=== PATIENT | female | born 2000 | race African-American/Black ===

== ENCOUNTER 2023-07-19 06:01 | Emergency (ER) | payer OTHER, SELFPAY ==
[2023-07-19] VITALS (28 sets, daily range): BP systolic 101–127; BP diastolic 65–107; PULSE 63–84; RESP 14–26; TEMP 36.7; O2SAT 69–100
--- NOTE | ~2023-07-19 | XR_ITS ---
Clinical Indication: Chest pain PA and lateral views of the chest: Comparison: None Findings: The lungs are clear, without evidence of focal consolidation or pleural effusion. Cardiome diastinal silhouette is within normal limits. Bones and soft tissues are unremarkable. Impression: Normal chest. Reviewed, dictated and finalized at location . N CUSTOMER EXPERIENCE SPECIALIST Impression: Normal chest.
--- NOTE | 2023-07-19 06:09 | ECG_ITS ---
Measurements Intervals [place] Rate: 66 P: 187 HI: 251 QRS: 67 QRSD: 95 T: 53 QT: 385 QTc: 405 Interpretive Statements SINUS RHYTHM POSSIBLE RIGHT VENTRICULAR CONDUCTION DELAY [RSR (QR) IN V1/V2] WITHIN NORMAL LIMITS NO PREVIOUS ECG AVAILABLE FOR COMPARISON Electronically Signed On 07-19-2023 7:20:52 DONOR RECRUITER by Fahad Montesinos M.D.
[2023-07-19 06:36] LABS: Basophils Percent Auto 0.6 % (0.2-1.2); Eosinophils Absolute Auto 0.1 K/mm3 (0-0.3); Eosinophils Percent Auto 1.6 % (0-4.4); Hematocrit 38.6 % (37.0-47.0); Hemoglobin 12.9 g/dL (12.0-15.0); Immature Granulocyte Absolute 0.01 K/mm3 (0.00-0.031); Immature Granulocyte Percent A 0.2 % (0-0.5); Lymphocytes Absolute Auto 1.97 K/mm3 (0.9-3.2); Mean Corpuscular HGB Conc 33.4 g/dl (32-36); Mean Corpuscular Hemoglobin 30.1 pg (26-34); Mean Corpuscular Volume 90.2 fl (80-100); Mean Platelet Volume 9.9 fl (7.4-10.4); Monocytes Absolute Auto 0.4 K/mm3 (0.1-0.6); Monocytes Percent Auto 8.3 % (2.6-8.5); Neutrophils Absolute Auto 2.4 K/mm3 (1.3-6.7); Neutrophils Percent Auto 49.3 % (45.5-73.1); Platelet Count Result 229 k/mm3 (150-375); Red Blood Count 4.28 M/mm3 (4.2-5.4); Red Cell Distribution Width 13.2 % (11.5-14.5); White Blood Count 4.9 K/mm3 (4.5-10.0)
[2023-07-19 06:47] LABS: INR 1.1; Prothrombin Time 14.6 Seconds (11.1-14.7)
[2023-07-19 06:48] LABS: Partial Thromboplastin Time 33.4 SECONDS (22.3-36.8)
[2023-07-19 06:50] LABS: Alanine Aminotransferase 12 U/L (6-35); Albumin Level 3.9 g/dL (3.5-5.1); Alkaline Phosphatase 66 U/L (38-126); Anion Gap 6 mmol/L (8-16); Aspartate Amino Transferase 26 U/L (14-36); Bilirubin,Total 0.4 mg/dL (0.2-1.3); Blood Urea Nitrogen 8 mg/dL (7-17); Calcium 8.7 mg/dL (8.4-10.2); Carbon Dioxide 24 mmol/L (22-30); Chloride 111 mmol/L (98-107); Estimated CRCL calculation 72 ml/min; Estimated Glomerular Filt Rate > 60; Glucose 93 mg/dL (65-110); Lipase 129 U/L (23-300); Potassium 4.1 mmol/L (3.4-5.0); Sodium 141 mmol/L (137-145)
[2023-07-19 07:01] LABS: Troponin I < 0.012 ng/mL (0.000-0.034)
--- NOTE | 2023-07-19 07:24 | ED.CHESTPAIN ---
HPI - Chest Pain General Chief Complaint: Chest Pain Stated Complaint: chest pain Time Seen by Provider: 07/19/23 07:02 History of Present Illness HPI narrative: Patient is a 23-year-old female who presents to the emergency department this morning complaining of a mid chest sharp stabbing chest pain which started this. Patient denies any similar symptoms in the past and denies any history of cardiovascular disease. Pain does not radiate and is not associated with any factors including respiration or movement. Patient denies any additional symptoms including shortness of breath, nausea, vomiting, abdominal pain, dysuria, hematuria, constipation, diarrhea, melena, hematochezia, fevers or chills. Patient also denies any headaches, dizziness, lightheadedness, blurry visions, focal weakness, numbness and or tingling. There are no other modifying, alleviating, or precipitating factors at this time. Related Data Allergies Allergy/AdvReac Type Severity Reaction Status Date / Time No Known Allergies Allergy Verified 07/19/23 06:02 Review of Systems Review of Systems: All systems are reviewed and are negative unless stated otherwise in the HPI. PMFSH Comments Denies any past medical history, surgical history, and family history. Denies any tobacco use or alcohol use, denies any illicit drug use. Exam Narrative: General: Alert, awake, afebrile, in no acute distress. HEENT: PERRL, no rhinorrhea, no post nasal drip, oropharynx clear. Neck: Trachea midline, no JVD, no lymphadenopathy. Cardiovascular: Regular rate and rhythm, no murmurs, rubs or gallops, no peripheral edema. Respiratory: Clear to auscultation bilaterally, no tachypnea, no wheezing, no rhonchi, no rubs, no respiratory distress. Abdomen: Soft, nontender, nondistended, no rebound, no guarding, no peritoneal signs. Musculoskeletal: No joint swelling or deformity, normal muscle tone. Skin: No rashes or petechia, no signs of infection. Psychiatric: Alert and oriented, normal behavior and judgment for situation. Neurological: Alert and oriented to person, place, and time. Follows all commands. No focal deficits, speech is clear and fluent. Course Vital Signs Vital signs: Vital Signs Temperature 98.0 F 07/19/23 06:03 Pulse Rate 75 07/19/23 06:03 Respiratory Rate 14 07/19/23 06:03 Blood Pressure 127/85 07/19/23 06:03 Pulse Oximetry 100 07/19/23 06:03 Oxygen Delivery Room Air 07/19/23 06:03 Temperature 98.0 F 07/19/23 06:03 Pulse Rate 72 07/19/23 09:11 Respiratory Rate 22 H 07/19/23 09:11 Blood Pressure 114/78 07/19/23 09:11 Pulse Oximetry 100 07/19/23 09:11 Oxygen Delivery Room Air 07/19/23 07:27 MDM - Chest Pain MDM Narrative Medical decision making narrative: The patient was evaluated by myself in the emergency department. History is obtained from patient who is an independent historian and physical exam was performed. External medical records were reviewed at this time. IV was established and pertinent tests were ordered. EKG was obtained which revealed sinus rhythm rate of 66 beats per minute. No ST changes, T wave inversions or evidence of acute ischemia. EKG was independently interpreted by me and is currently pending official cardiology read. Laboratory results obtained including troponin and D-dimer which were both noted to be within normal limits. Second troponin obtained also noted to be normal Imaging studies obtained included CXR which was independently interpreted by me revealing no acute process, which is pending final radiology interpretation. Differential diagnosis considerations include stress reaction, anxiety, infectious process such as pneumonia, viral syndrome including COVID/influenza, acute coronary symptom although unlikely given the patient's lack of risk factors and 2- troponins within normal EKG. Comorbidities impacting this visit include none. I have evaluated and discussed soc
[2023-07-19 07:43] LABS: D Dimer < 0.27 ug/mL (<0.48)
[2023-07-19 08:28] LABS: Influenza A QL RT-PCR Negative (Negative); Influenza B QL RT-PCR Negative (Negative); SARS-CoV-2 RNA PCR Negative (Negative)
--- NOTE | 2023-07-19 09:01 | ECG_ITS ---
Measurements Intervals [place] Rate: 68 P: 19 MS: 149 QRS: 61 QRSD: 85 T: 39 QT: 374 QTc: 400 Interpretive Statements SINUS RHYTHM POSSIBLE RIGHT VENTRICULAR CONDUCTION DELAY [RSR (QR) IN V1/V2] WITHIN NORMAL LIMITS COMPARED TO ECG 07/19/2023 06:14:32 NO SIGNIFICANT CHANGES Electronically Signed On 07-19-2023 15:32:13 PHOTOVOLTAIC PANEL INSTALLER by Fahad Montesinos M.D.
[2023-07-19 09:51] LABS: Troponin I < 0.012 ng/mL (0.000-0.034)
== END 2023-07-19 10:19 | disposition home or self-care (01) ==
PROVIDERS: Emergency Medicine; Emergency Provider Emergency Medicine
DX: R07.9 Chest pain, unspecified (principal); Z20.822 Contact with and (suspected) exposure to COVID-19; R94.31 Abnormal electrocardiogram [ECG] [EKG]
CPT/HCPCS: 36415; 71046; 80053; 83690; 84484; 85025; 85380; 85610; 85730; 87636; 93005; 99284

== ENCOUNTER 2023-07-23 03:49 | Emergency (ER) | payer OTHER, SELFPAY ==
[2023-07-23 03:52] VITALS: BP 132/87; PULSE 103; RESP 18; TEMP 36.4; O2SAT 99
[2023-07-23 04:30] LABS: Strep Group A RT-PCR NOT DETECTED (Negative)
[2023-07-23 04:41] LABS: Influenza A QL RT-PCR Negative (Negative); Influenza B QL RT-PCR Positive (Negative); RSV RNA, RT-PCR Negative (Negative); SARS-CoV-2 RNA PCR Negative (Negative)
--- NOTE | 2023-07-23 04:52 | ED.GENADULT ---
HPI - General Adult General Chief complaint: Upper Respiratory Infection Stated complaint: cough, chest pain Time Seen by Provider: 07/23/23 04:24 History of Present Illness HPI narrative: This is a 23-year-old female presenting ED with 2 days of flu-like symptoms. Symptoms include fever body aches and headache. Patient denies nausea vomiting or diarrhea. Denies chest pain difficulty breathing. Mild sore throat from the cough. No ear pain. Related Data Allergies Allergy/AdvReac Type Severity Reaction Status Date / Time No Known Allergies Allergy Verified 07/23/23 03:59 Exam Narrative: APPEARANCE: No apparent distress. Head: ears and throat unremarkable EYES: EOMI, NOSE: Atraumatic NECK: Trachea midline RESPIRATORY: No increased rate of breathing , clear to auscultation CARDIOVASCULAR: RRR, no peripheral edema ABDOMINAL: Non-distended soft nontender MUSCULOSKELETAl: No obvious deformities NEURO: Alert. Moving 4/4 extremities SKIN:: Warm, dry. Normal color PSYCHIATRIC: Normal affect Course Vital Signs Vital signs: Vital Signs Temperature 97.5 F L 07/23/23 03:52 Pulse Rate 103 H 07/23/23 03:52 Respiratory Rate 18 07/23/23 03:52 Blood Pressure 132/87 07/23/23 03:52 Pulse Oximetry 99 07/23/23 03:52 Oxygen Delivery Room Air 07/23/23 03:52 Temperature 97.5 F L 07/23/23 03:52 Pulse Rate 103 H 07/23/23 03:52 Respiratory Rate 18 07/23/23 03:52 Blood Pressure 132/87 07/23/23 03:52 Pulse Oximetry 99 07/23/23 03:52 Oxygen Delivery Room Air 07/23/23 03:58 Medical Decision Making [facility] Narrative Medical decision making narrative: -Course: 23-year-old female presenting with flu-like symptoms. Positive for and when to be. Patient treated with Tylenol Toradol emergency department. Risks and benefits of Tamiflu were discussed the patient has opted for a prescription for Tamiflu. Patient discharged with return precautions. 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 girlfriend, denies alcohol tobacco, occasional marijuana use -Independent interpretation of studies: flu B positive -Interventions: Toradol, Tylenol -Shared decision making / Disposition: discharge -RX Motrin Tylenol tamiflu Vital Signs Vital Signs: Vital Signs Temperature 97.5 F L 07/23/23 03:52 Pulse Rate 103 H 07/23/23 03:52 Respiratory Rate 18 07/23/23 03:52 Blood Pressure 132/87 07/23/23 03:52 Pulse Oximetry 99 07/23/23 03:52 Oxygen Delivery Room Air 07/23/23 03:52 Temperature 97.5 F L 07/23/23 03:52 Pulse Rate 103 H 07/23/23 03:52 Respiratory Rate 18 07/23/23 03:52 Blood Pressure 132/87 07/23/23 03:52 Pulse Oximetry 99 07/23/23 03:52 Oxygen Delivery Room Air 07/23/23 03:58 Lab Data Labs: Lab Results 07/23/23 Range/Units 04:00 Influenza A (RT-PCR) Negative (Negative) Influenza B (RT-PCR) Positive A (Negative) RSV (RT-PCR) Negative (Negative) SARS-CoV-2 RNA (RT-PCR) Negative (Negative) Group A Strep (PCR) Not detected (Negative) Discharge Plan Discharge Clinical Impression: Influenza Patient Disposition: Home, Self-Care Condition: Stable Instructions: Antibiotic Form, Influenza (ED) Prescriptions: New ibuprofen 800 mg tablet 800 mg PO TID PRN (Reason: pain) 7 Days Qty: 21 0RF acetaminophen 500 mg tablet 1,000 mg PO TID PRN (Reason: ever) 7 Days Qty: 42 0RF oseltamivir 75 mg capsule 75 mg PO Q12H 5 Days Qty: 10 0RF Follow-up/Referrals: UNKNOWN,DOCTOR [Primary Care Provider] -
[2023-07-23] MEDS: ACETAMINOPHEN 500 MG TABLET 1000 MG PO (05:12)
[2023-07-23] MEDS: KETOROLAC 15 MG/ML VIAL (*BKC) IM (05:12)
[2023-07-23 05:18] VITALS: BP 134/87; PULSE 102; RESP 16; O2SAT 97
== END 2023-07-23 05:21 | disposition home or self-care (01) ==
PROVIDERS: Emergency Provider Emergency Medicine
DX: J10.1 Influenza due to other identified influenza virus with other respiratory manifestations (principal); Z20.822 Contact with and (suspected) exposure to COVID-19
CPT/HCPCS: 87637; 87651; 96372; 99283; A9270; J1885

== ENCOUNTER 2023-10-02 15:38 | Emergency (ER) | payer OTHER, SELFPAY ==
[2023-10-02 15:48] VITALS: BP 124/81; PULSE 82; RESP 16; TEMP 37.2; O2SAT 98
--- NOTE | 2023-10-02 17:14 | ED.GENADULT ---
HPI - General Adult General Chief complaint: Skin/Abscess/Foreign Body Stated complaint: breaking out back,shoulders,stomach Source: patient Mode of arrival: ambulatory Limitations: no limitations History of Present Illness HPI narrative: Patient presents for evaluation of a pruritic rash to the chest, back and face for the last 11 days. No new lotions, soaps, detergents or topical products prior to the time of symptom onset. She has been using cocoa butter to assist with her symptoms. No difficulty breathing or swallowing. She had similar symptoms in the past but never looked into it. Her symptoms started after a trip to [email or web address]. She is not sexually active. Related Data Home Medications Medication Instructions Recorded Confirmed medroxyprogesterone 150 mg/mL See Rx Instructions .Route .COMPLEX 10/02/23 10/02/23 intramuscular suspension Allergies Allergy/AdvReac Type Severity Reaction Status Date / Time No Known Allergies Allergy Verified 10/02/23 16:08 Review of Systems Review of Systems: CONSTITUTIONAL: Denies fever, chills, or sweats. EYES: Denies visual changes, redness, or discharge. ENT: Denies rhinorrhea, congestion, sore throat, or otalgia. CARDIOVASCULAR: Denies chest pain, palpitations, or edema. RESPIRATORY: Denies cough or dyspnea. GASTROINTESTINAL: Denies abdominal pain, nausea, vomiting, or diarrhea. GENITOURINARY: Denies dysuria or hematuria. SKIN: Reports pruritic rash to face, back and chest. MUSCULOSKELETAL: Denies back pain, joint pain, or myalgia. NEUROLOGIC: Denies headache, numbness, dizziness, or weakness. PSYCHIATRIC: Denies anxiety or depression. [facility] Past Medical History Medical History No pertinent past medical history Surgical History Surgical History No pertinent past surgical history Family History Family History Mother Family history non-contributory Social History Social History Smoking status: Never smoker Alcohol intake: never Substance use: current Substance use type: marijuana Spiritual care concerns: No Exam Narrative: GENERAL: Well-appearing, well-nourished, and in no acute distress. HEAD: Normocephalic, atraumatic. EYES: PERRLA and EOMI. ENT: Nares clear, no rhinorrhea or epistaxis. Mucous membranes moist. Oropharynx without tonsillar hypertrophy exudate or other lesions. Bilateral TMs pearly mckinley nonbulging NECK: Supple. No adenopathy or masses. No carotid bruits or JVD CHEST: Clear to auscultation. No respiratory distress. No wheezes rales or rhonchi HEART: Regular rate and rhythm. No murmur heard. Normal peripheral pulses. ABDOMEN: Soft, nontender, nondistended, normal active bowel sounds. EXTREMITIES: Normal range of motion. No edema. SKIN: There are slightly pinpoint raised areas to the skin of the face, chest and back, some of which are hyperpigmented in appearance NEURO: No focal deficits. Alert and oriented x3. PSYCH: Normal mood and affect. Course Course Emergency Course: This is a 23-year-old female who presented for evaluation of a pruritic rash to the face, chest, back for the past eleven days. Differential includes tinea versicolor vs some type of allergic reaction. Reports discharge with ketoconazole and prednisone. Follow-up with primary provider. Go to the ER for worsening symptoms. Pt in agreement with plan of care. Level of Care: Express Care Visit Vital Signs Vital signs: Vital Signs Temperature 37.2 C 10/02/23 15:48 Pulse Rate 82 10/02/23 15:48 Respiratory Rate 16 10/02/23 15:48 Blood Pressure 124/81 10/02/23 15:48 Pulse Oximetry 98 10/02/23 15:48 Oxygen Delivery Room Air 10/02/23 15:48 Temperature 37.2 C 10/02/23 15:48 Pul
== END 2023-10-02 17:24 | disposition home or self-care (01) ==
PROVIDERS: Emergency Provider Nurse Practitioner
DX: R21 Rash and other nonspecific skin eruption (principal)
CPT/HCPCS: 99213; G0463

== ENCOUNTER 2023-10-09 11:42 | Emergency (ER) | payer OTHER, SELFPAY ==
--- NOTE | ~2023-10-09 | XR_ITS ---
EXAMINATION: XR chest 2V 10/09/2023 12:16 INDICATION: Chest pain PROCEDURE: 2 view chest COMPARISON: 07/19/2023 FINDINGS: The lungs are clear. The cardiomediastinal silhouette is within normal limits. There are no pleural effusions. There is no pneumothorax suspected. IMPRESSION: 1: NO ACUTE CARDIOPULMONARY DISEASE. Reviewed, dictated and finalized at location B.
[2023-10-09 11:50] VITALS: BP 147/90; PULSE 99; RESP 24; TEMP 36.5; O2SAT 100
--- NOTE | 2023-10-09 11:58 | ECG_ITS ---
SEE SCANNED COPY FOR CONFIRMED REPORT. MTDD
[2023-10-09 12:08] LABS: Basophils Percent Auto 0.2 % (0.2-1.2); Eosinophils Absolute Auto 0.1 K/mm3 (0-0.3); Eosinophils Percent Auto 0.5 % (0-4.4); Hemoglobin 14.7 g/dL (12.0-15.0); Immature Granulocyte Absolute 0.05 K/mm3 (0.00-0.031); Immature Granulocyte Percent A 0.4 % (0-0.5); Lymphocytes Absolute Auto 0.79 K/mm3 (0.9-3.2); Lymphocytes Percent Auto 6.9 % (18.3-44.2); Mean Corpuscular HGB Conc 33.4 g/dl (32-36); Mean Corpuscular Hemoglobin 30.1 pg (26-34); Mean Platelet Volume 10.3 fl (7.4-10.4); Monocytes Absolute Auto 0.7 K/mm3 (0.1-0.6); Monocytes Percent Auto 5.8 % (2.6-8.5); Neutrophils Absolute Auto 9.9 K/mm3 (1.3-6.7); Neutrophils Percent Auto 86.2 % (45.5-73.1); Platelet Count Result 245 k/mm3 (150-375); Red Blood Count 4.89 M/mm3 (4.2-5.4); Red Cell Distribution Width 13.5 % (11.5-14.5); White Blood Count 11.4 K/mm3 (4.5-10.0)
[2023-10-09 12:16] LABS: Prothrombin Time 13.4 Seconds (11.1-14.7)
[2023-10-09 12:17] LABS: Partial Thromboplastin Time 29.4 Seconds (22.3-36.8)
[2023-10-09 12:31] LABS: Alanine Aminotransferase 20 U/L (6-35); Alkaline Phosphatase 85 U/L (38-126); Anion Gap 9 mmol/L (4-12); Aspartate Amino Transferase 26 U/L (14-36); Bilirubin,Total 0.7 mg/dL (0.2-1.3); Blood Urea Nitrogen 15 mg/dL (7-17); Calcium 9.4 mg/dL (8.4-10.2); Carbon Dioxide 23 mmol/L (22-30); Chloride 107 mmol/L (98-107); Estimated CRCL calculation 81 ml/min; Estimated Glomerular Filt Rate > 60; Glucose 98 mg/dL (65-110); Lipase 146 U/L (23-300); Potassium 4.6 mmol/L (3.4-5.0); Sodium 139 mmol/L (137-145)
[2023-10-09 12:43] LABS: Troponin I < 0.012 ng/mL (0.000-0.034)
--- NOTE | 2023-10-09 12:44 | ED.ABDPAIN ---
HPI - Abdominal Pain General Chief Complaint: Abdominal Pain Stated Complaint: abd pain Time Seen by Provider: 10/09/23 12:07 Source: patient Mode of arrival: ambulatory Limitations: no limitations History of Present Illness HPI narrative: 23-year-old otherwise healthy here with the complaints of abdominal pain radiating into her chest associated with nausea, vomiting and diarrhea started this morning. She denies any fever or chills no other family members sick at this time. She denies eating any unusual food or fluid. MD elicited complaint: abdominal pain Pertinent past history: none Onset (ago): hour(s) (8) Pain Consistency: now resolved Location: epigastric Severity: mild Quality: aching Radiation: chest Migration to: no migration Exacerbating factors: nothing Relieving factors: nothing Associated symptoms: denies other symptoms Related Data Patient : No Home Medications Medication Instructions Recorded Confirmed medroxyprogesterone 150 mg/mL See Rx Instructions .Route .COMPLEX 10/02/23 10/02/23 intramuscular suspension Allergies Allergy/AdvReac Type Severity Reaction Status Date / Time No Known Allergies Allergy Verified 10/02/23 16:08 Review of Systems Review of Systems: All systems reviewed & are unremarkable except as noted in HPI and below Constitutional: Constitutional: Reports no additional constitutional complaints Eyes: Eyes: Reports no additional eye complaints ENT: Reports system reviewed and no additional complaints, except as documented Cardiovascular: Cardiovascular: Reports no additional cardiovascular complaints Respiratory: Respiratory: Reports no additional respiratory complaints Gastrointestinal: Gastrointestinal: Reports as per HPI Musculoskeletal: Musculoskeletal: Reports no additional musculoskeletal complaints Neurologic: Reports system reviewed and no additional complaints, except as documented Psychiatric: Psychiatric: Reports no additional psychiatric complaints PMFSH Past Medical History Medical History No pertinent past medical history Surgical History Surgical History No pertinent past surgical history Family History Family History Mother Family history non-contributory Social History Social History Smoking status: Never smoker Alcohol intake: never Substance use: current Substance use type: marijuana Spiritual care concerns: No Exam Narrative: GENERAL: Well-appearing, well-nourished, and in no acute distress. HEAD: Normocephalic, atraumatic. EYES: PERRLA and EOMI. ENT: Nares clear, no rhinorrhea or epistaxis. Mucous membranes moist. NECK: Supple. CHEST: Clear to auscultation. No respiratory distress. HEART: Regular rate and rhythm. No murmur heard. Normal peripheral pulses. ABDOMEN: Soft, nontender, nondistended, normal active bowel sounds. EXTREMITIES: Normal range of motion. No edema. SKIN: Warm, dry, no rash. NEURO: No focal deficits. Alert and oriented x3. PSYCH: Normal mood and affect. Course Course Emergency Course: Patient comfortably resting on the bed in no discomfort had no further episodes of nausea, vomiting or diarrhea. Notified had about the lab work, EKG findings Vital Signs Vital signs: Vital Signs Temperature 36.5 C 10/09/23 11:50 Pulse Rate 99 10/09/23 11:50 Respiratory Rate 24 H 10/09/23 11:50 Blood Pressure 147/90 H 10/09/23 11:50 Pulse Oximetry 100 10/09/23 11:50 Temperature 36.5 C 10/09/23 11:50 Pulse Rate 99 10/09/23 11:50 Respiratory Rate 24 H 10/09/23 11:50 Blood Pressure 147/90 H 10/09/23 11:50 Pulse Oximetry 100 10/09/23 11:50 MDM - Abdominal Pain Differential Diagnosis Differential diagnosis: Likely abdominal pain and gastroente
== END 2023-10-09 13:11 | disposition home or self-care (01) ==
PROVIDERS: Emergency Medicine; Emergency Provider Family Medicine
DX: K52.9 Noninfective gastroenteritis and colitis, unspecified (principal)
CPT/HCPCS: 36415; 71046; 80053; 83690; 84484; 85025; 85610; 85730; 93005; 99284

== ENCOUNTER 2025-02-14 16:22 | Emergency (ER) | payer SELFPAY ==
--- OUTSIDE RECORDS SUMMARY | 2025-02-14 16:25 | XMS_ITS | Clinical Summary ---
Author Organization [facility] Address [address] [place] [address] Care Team Providers Care Sales Manager [place] Name Role Phone Lucila Nation MD Primary Care Provider [phone] Allergies No known active allergies Medications oxaprozin 600 MG tablet Take 1 tablet (600 mg total) by mouth 2 (two) times daily as needed (Pain. Please take with meals). 60 tablet 0 Active Norgestimate-Et hinyl Estradiol (ORTHO TRI-CYCLEN, 28,) 0.18/0.215/0.25 MG-35 MCG tablet Take 1 tablet by mouth daily. 28 tablet 0 Active fluconazole (DIFLUCAN) 150 MG tablet Take 150mg on day one. Can take remaining 150mg 72 hours later if if symptoms persist 2 tablet 2 Active Social History Tobacco Use Types Packs/Day Years Used Date Smoking Tobacco: Former Cigarettes Smokeless Tobacco: Never Alcohol Use Standard Drinks/Week Comments No 0 (1 standard drink = 0.6 oz pur e alcohol) AUDIT-C Answer Date Recorded Frequency of Alcohol Consumption Never 12/21/2018 Average Number of Drinks Not on file 019 Frequency of Binge Drinking Not on file 12/08 Comments No Sex and Gender Information Value Date Recorded Sex Assigned at Not on file Legal Sex Female 6:57 PM CDT Gender Identity Not on file Sexual Orientation Not on file Last Filed Vital Signs Vital Sign Reading Time Taken Comments Blood Pressure 132/82 02/10/2022 2:22 PM CDT Pulse 78 02/10/2022 2:22 PM CDT Temperature 36.4 C (97.5 F) 02/10/2022 2:22 PM CDT Respiratory Rate 18 02/10/2022 2:22 PM CDT Oxygen Saturation 100% 02/10/2022 2:22 PM CDT Inhaled Oxygen Concentration - - Weight 65.8 kg (145 lb 1 oz) 02/10/2022 2:22 PM CDT Height 162.6 cm (5' 4) 02/10/2022 2:22 PM CDT Body Mass Index 24.9 02/10/2022 2:22 PM CDT Plan of Treatment Health Maintenance Due Date Last Done Comments Cervical Cancer Screening Pap Smear (Age 21 to 29) Every 3 Years 1998 Cervical Cancer Screening 1998 Annual Physical 2001 DTaP, Tdap and Td Vaccines (5 - Tdap) 2009 01/22/2003, 05/25/1999, 1998, Additional history exists Hepatitis C 02/17/2016 Hepatitis B Vaccines (1 of 3 - 19+ 3-dose series) 2017 COVID-19 Vaccine ( season) 2025 HPV Vaccines Completed 01/20/2014, 06/11, 01/07/2012 Meningococcal Vaccine Completed 03/02/2014 Meningococcal B Vaccine Aged Out No l onger eligible based on patient's age to complete this topic Pneumococcal Vaccine: Pediatrics (0 to 5 Years) and At-Risk Patients (6 to 49 Years) Aged Out No longer eligible based on patient's age to complete this topic RSV Immunizations Under 20 Months Aged Out No longer eligible based on patient's age to complete this topic Insurance Care Teams Sales Manager [place] Relationship Specialty Start Date End Date Lucila Nation MD [address] [place] [address] PCP - General INTERNAL MEDICINE 01/19/22
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
[2025-02-14 16:35] VITALS: BP 131/82; PULSE 66; RESP 16; TEMP 36.7; O2SAT 100
--- NOTE | 2025-02-14 17:07 | ED_ITS ---
HPI - Alcohol General Chief Complaint: Alcohol Stated Complaint: I think I have alcohol poisoning N/V Time Seen by Provider: 02/14/25 16:42 History of Present Illness HPI narrative: Patient is a 24-year-old female who presents to the ER stating I got alcohol poisoning last night.She reports she went out for a birthday celebration last night and was doing shots. Patient reports she started vomiting, but continue drinking until 2:00 a.m. She endorses nausea, vomiting, and chest discomfort (from vomiting) at time of examination. Patient denies any recent fevers, diarrhea, urinary symptoms, or abdominal pain. She denies any medical history relevant to this ER visit. Patient does endorse daily marijuana use. Related Data Home Medications ?Medication ?Instructions ?Recorded ?Confirmed ?Last Taken ?Type medroxyprogesterone 150 mg/mL See Rx Instructions .Rou te .COMPLEX 10/02/23 10/02/23 Unknown History intramuscular suspension Allergies Allergy/AdvReac Type Severity Reaction Status Date / Time No Known Allergies Allergy Verified 02/14/25 16:24 Review of Systems 2 Review of Systems: All systems reviewed & are unremarkable except as noted in HPI and below PMFSH Past Medical History Medical History No pertinent past medical history Surgical History Surgical History No pertinent past surgical history Family History Family History Mother Family history non-contributory Social History Social History Smoking status: Never smoker Alcohol intake: never Substance use: current Substance use type: marijuana Spiritual care concerns: No Exam 2 Narrative: GENERAL: Well appearing, well-nourished, non-toxic, in no acute distress. HEAD: Normocephalic, atraumatic. NECK: Supple. No adenopathy, no masses. RESPIRATORY: Airway patent, respirations nonlabored. Clear to auscultation bilaterally, no rales, rhonchi, wheezing. CARDIOVASCULAR: Regular rate and rhythm without murmurs, rubs, or gallops. Peripheral pulses 2+ and equal bilaterally. ABDOMINAL: Soft, nontender, nondistended, no hepatosplenomegaly. Normoactive BS. MUSCULOSKELETAL: Moves all extremities. Strength/ROM intact without gross deformities. SKIN: Warm, dry, normal color. No rashes. NEURO: A&O X3. Speech clear. Cranial nerves II-XII intact. No ataxic movements. PSYCHIATRIC: Appropriate mood and affect. Normal interaction. Course Vital Signs Vital signs: Vital Signs Temperature 36.7 C 02/14/25 16:35 Pulse Rate 66 02/14/25 16:35 Respiratory Rate 16 02/14/25 16:35 Blood Pressure 131/82 02/14/25 16:35 Pulse Oximetry 100 02/14/25 16:35 Oxygen Delivery Room Air 02/14/25 16:35 Temperature 36.7 C 02/14/25 16:35 Pulse Rate 66 02/14/25 16:35 Respiratory Rate 16 02/14/25 16:35 Blood Pressure 131/82 02/14/25 16:35 Pulse Oximetry 100 02/14/25 16:35 Oxygen Delivery Room Air 02/14/25 16:35 MDM - Alcohol MDM Narrative Medical decision making narrative: Patient is a 24-year-old female who presents to the ER stating I got alcohol poisoning last night. She reports she went out for a birthday celebration last night and was doing shots. Patient reports she started vomiting, but continue drinking until 2:00 a.m. She endorses nausea, vomiting, and chest discomfort (from vomiting) at time of examination. Patient denies any recent fevers, diarrhea, urinary symptoms, or abdominal pain. She denies any medical history relevant to this ER visit. Patient does endorse daily marijuana use. Labs Ordered: CBC, CMP, UA, UDS Imaging Ordered: None necessary Medications Ordered: 1 L normal saline IV bolus, Benadryl IV, Reglan IV Results: Patient's CBC was unremarkable for any acute abnormalities. Her chemistry was unremarkable for any acute abnormalities. Patient's urinalysis indicates mild dehydration. Her drug screen is positive for cannabinoids. Diagnosis: Nausea vomiting, alcohol intoxication, drug induced nausea/vomit Patient Education/Shared MDM: Results of lab work shared with patient. She endorses improvement of symptoms following medication administration. Patient strongly advised to maintain hydration status upon discharge and follow-up with her PCP as soon as possible. Patient advised to refrain from further alcohol and drug use. She will be discharged home with a prescription for Reglan. Strict return precautions provided. Patient verbalized understanding and is in agreement with plan. Vital signs stable at time of discharge. All questions answered. Differential Diagnosis Differential diagnosis: Likely alcohol intoxication and other (Drug-induced nausea vomiting, dehydration, urinary tract infection) Lab Data Attestation: I reviewed the patient's lab results. 02/14/25 17:58 02/14/25 17:58 Labs: Lab Results 02/14/25 02/14/25 Range/Units 17:58 18:00 WBC 8.6 (4.5-10.0) K/mm3 RBC 4.27 (4.2-5.4) M/mm3 Hgb 12.4 (12.0-15.0) g/dL Hct 37.9 (37.0-47.0) % MCV 88.8 (80-100) fl MCH 29.0 (26-34) pg MCHC 32.7 (32-36) g/dl RDW 13.3 (11.5-14.5) % Plt Count 262 (150-375) k/mm3 MPV 10.4 (7.4-10.4) fl Immature Gran % (Auto) 0.6 H (0-0.5) % Neut % (Auto) 79.4 H (45.5-73.1) % Lymph % (Auto) 14.4 L (18.3-44.2) % [place] % (Auto) 5.3 (2.6-8.5) % Eos % (Auto) 0.0 (0-4.4) % Baso % (Auto) 0.3 (0.2-1.2) % Lymph # (Auto) 1.24 (0.9-3.2) K/mm3 [place] # (Auto) 0.5 (0.1-0.6) K/mm3 Eos # (Auto) 0.0 (0-0.3) K/mm3 Baso # (Auto) 0.0 (0.0-0.1) K/mm3 Abs Immat Gran (auto) 0.05 H (0.00-0.031) K/mm3 Absolute Neuts (auto) 6.9 H (1.3-6.7) K/mm3 Absolute Nucleated RBC 0.000 (0.0-0.012) K/mm3 Nucleated RBC % 0.0 (0.0-0.2) % Sodium 140 (137-145) mmol/L Potassium 4.2 (3.4-5.0) mmol/L Chloride 105 (98-107) mmol/L Carbon Dioxide 26 (22-30) mmol/L Anion Gap 9 (4-12) mmol/L BUN 11 (7-17) mg/dL Creatinine 0.86 (0.7-1.0) mg/dL Estim Creat Clear Calc 75 ml/min Estimated GFR > 60 (59 - ) Glucose 97 (65-110) mg/dL Calcium 9.3 (8.4-10.2) mg/dL Total Bilirubin 0.3 (0.2-1.3) mg/dL AST 34 (14-36) U/L ALT 18 (6-35) U/L Alkaline Phosphatase 90 (38-126) U/L Total Protein 8.0 (6.3-8.2) g/dL Albumin 4.7 (3.5-5.1) g/dL Urine Color Yellow (Yellow) Urine Appearance Clear (Clear) Urine pH 8.5 (5.0-9.0) Ur Specific [place] 1.015 (1.001-1.035) Urine Protein 1+ H (Negative) mg/dL Urine Glucose (UA) Negative (Negative) mg/dL Urine Ketones Trace H (Negative) mg/dL Ur Blood (Man) Negative (Negative) Urine Nitrate Negative (Negative) Urine Bilirubin Negative (Negative) Urine Urobilinogen 0.2 (<2.0) mg/dL Leukocyte Esterase Rfl Negative (Negative) CECILY/UL Urine RBC 11-20 H (0-2) /hpf Urine WBC 0-5 (0-3) /hpf Ur Squamous Epith Cells Few (Few) /hpf Urine Bacteria Rare /hpf Urine Casts 0-2 Urine Opiates Screen Negative (Negative) Urine Methadone Screen Negative (Negative) Ur Barbiturates Screen Negative (Negative) Ur Phencyclidine Scrn Negative (Negative) Ur Amphetamine Screen Negative (Negative) U Benzodiazepines Scrn Negative (Negative) Urine Cocaine Screen Negative (Negative) U Cannabinoids Screen Positive A (Negative) Discharge Plan Discharge Clinical Impression: Alcoholic intoxication, Dehydration, mild, Drug-induced nausea and vomiting Patient Disposition: Home Condition: Stable Instructions: Antibiotic Form, Alcohol Intoxication (ED) Additional Instructions: Please return to the ER with any worsening symptoms. Follow-up with primary care provider as needed. You may take Reglan as needed for nausea. Please remember to stay hydrated. You may take Tylenol and/or ibuprofen for pain control. Patient Language: Belarusian Prescriptions: New metoclopramide HCl [Reglan] 10 mg tablet 10 mg PO Q6H PRN (Reason: nausea and vomiting) Qty: 30 0RF No Action medroxyprogesterone 150 mg/mL suspension See Rx Instructions .ROUTE .COMPLEX Rx Instructions: Rx prednisone 50 mg tablet 50 mg PO DAILY Qty: 5 0RF ketoconazole 2 % cream 1 applic topical BID Qty: 60 1RF hydroxyzine pamoate [Vistaril] 25 mg capsule 25 - 50 mg PO TID Qty: 20 0RF ondansetron 4 mg tablet,disintegrating 4 mg PO Q6-8H PRN (Reason: nausea and vomiting) Qty: 14 0RF Follow-up/Referrals: PHYSICIAN,BACK TACKER [Primary Care Provider, Internal Medicine] Benoit Zafar MD [Physician, Family Practice] Referral Note: primary care provider Stand Alone Forms: Work/School Release IP Time of Disposition: 18:40
[2025-02-14] MEDS: METOCLOPRAMIDE HCL INJ 10 MG/2 ML VIAL IV PUSH (17:59)
[2025-02-14] MEDS: SODIUM CHLORIDE 0.9% IV 1,000 ML 999 ML IV CONT (17:59)
[2025-02-14 18:12] LABS: Hematocrit 37.9 % (37.0-47.0); Hemoglobin 12.4 g/dL (12.0-15.0); Immature Granulocyte Percent A 0.6 % (0-0.5); Lymphocytes Absolute Auto 1.24 K/mm3 (0.9-3.2); Mean Corpuscular HGB Conc 32.7 g/dl (32-36); Mean Corpuscular Hemoglobin 29.0 pg (26-34); Mean Corpuscular Volume 88.8 fl (80-100); Nucleated Red Blood Cells Absolute Auto 0.000 K/mm3 (0.0-0.012); Nucleated Red Blood Cells Perc 0.0 % (0.0-0.2); Platelet Count Result 262 k/mm3 (150-375); Red Blood Count 4.27 M/mm3 (4.2-5.4); White Blood Count 8.6 K/mm3 (4.5-10.0)
[2025-02-14 18:15] LABS: Non Pathogenic Casts 0-2
[2025-02-14 18:18] LABS: Add Urine Microscopic? YES; Appearance Urine Clear (Clear); Glucose Urine UA Negative (Negative); Specific Grav Ur 1.015 (1.001-1.035)
[2025-02-14 18:19] LABS: Leukocyte Esterase Ur Negative LEU/UL (Negative); Nitrate Urine Negative (Negative)
[2025-02-14 18:23] LABS: Alanine Aminotransferase 18 U/L (6-35); Albumin Level 4.7 g/dL (3.5-5.1); Alkaline Phosphatase 90 U/L (38-126); Anion Gap 9 mmol/L (4-12); Aspartate Amino Transferase 34 U/L (14-36); Bilirubin,Total 0.3 mg/dL (0.2-1.3); Blood Urea Nitrogen 11 mg/dL (7-17); Calcium 9.3 mg/dL (8.4-10.2); Carbon Dioxide 26 mmol/L (22-30); Chloride 105 mmol/L (98-107); Estimated CRCL calculation 75 ml/min; Estimated Glomerular Filt Rate > 60; Glucose 97 mg/dL (65-110); Potassium 4.2 mmol/L (3.4-5.0); Sodium 140 mmol/L (137-145); Total Protein 8.0 g/dL (6.3-8.2)
[2025-02-14 18:32] LABS: Cannabinoid Screen Urine Positive (Negative)
== END 2025-02-14 19:27 | disposition home or self-care (01) ==
PROVIDERS: Emergency Provider Registered Nurse
DX: F10.120 Alcohol abuse with intoxication, uncomplicated (principal); Y90.9 Presence of alcohol in blood, level not specified; E86.0 Dehydration; R11.2 Nausea with vomiting, unspecified
CPT/HCPCS: 36415; 80053; 80307; 81001; 85025; 96361; 96374; 96375; 99284; J1200; J2765; J7030

== ENCOUNTER 2025-03-31 15:14 | Emergency (ER) | payer SELFPAY ==
[2025-03-31 15:16] VITALS: BP 134/78; PULSE 70; RESP 18; TEMP 36.6; O2SAT 100
[2025-03-31 15:32] VITALS: BP 130/87; PULSE 84; RESP 16; TEMP 36.7; O2SAT 100
[2025-03-31] MEDS: ACETAMINOPHEN 500 MG TABLET 1000 MG PO (15:56)
--- NOTE | 2025-03-31 16:17 | ED.GENADULT ---
HPI - General Adult General Chief complaint: Upper Respiratory Infection Stated complaint: my face hurts Time Seen by Provider: 03/31/25 15:20 History of Present Illness HPI narrative: This is a 75-year-old female presenting for URI symptoms. Patient says she has been having sinus pain and pressure in her face and sinuses. She also has a sore throat and some ear fullness. She denies fevers nausea or vomiting. She had 1 episode of diarrhea. No chest pain difficulty breathing or abdominal pain. Related Data Home Medications ?Medication ?Instructions ?Recorded ?Confirmed ?Last Taken ?Type medroxyprogesterone 150 mg/mL See Rx Instructions .Route .COMPLEX 10/02/23 10/02/23 Unknown History intramuscular suspension Allergies Allergy/AdvReac Type Severity Reaction Status Date / Time No Known Allergies Allergy Verified 03/31/25 15:15 [facility] Past Medical History Medical History No pertinent past medical history Surgical History Surgical History No pertinent past surgical history Family History Family History Mother Family history non-contributory Social History Social History Smoking status: Never smoker Alcohol intake: never Substance use: current Substance use type: marijuana Spiritual care concerns: No Exam Narrative: APPEARANCE: No apparent distress. Head: atraumatic. Mild erythema of the posterior oropharynx without exudates. Tympanic membranes are normal bilaterally. EYES: EOMI, NOSE: Atraumatic NECK: Trachea midline RESPIRATORY: No increased rate of breathing clear to auscultation CARDIOVASCULAR: RRR, ABDOMINAL: Non-distended soft nontender MUSCULOSKELETAl: No obvious deformities NEURO: Alert. Moving 4/4 extremities SKIN:: Warm, dry. Normal color PSYCHIATRIC: Normal affect Course Vital Signs Vital signs: Vital Signs Temperature 97.8 F 03/31/25 15:16 Pulse Rate 70 03/31/25 15:16 Respiratory Rate 18 03/31/25 15:16 Blood Pressure 134/78 03/31/25 15:16 Pulse Oximetry 100 03/31/25 15:16 Oxygen Delivery Room Air 03/31/25 15:16 Temperature 98.1 F 03/31/25 15:32 Pulse Rate 84 03/31/25 15:32 Respiratory Rate 16 03/31/25 15:32 Blood Pressure 130/87 03/31/25 15:32 Pulse Oximetry 100 03/31/25 15:32 Oxygen Delivery Room Air 03/31/25 15:32 Medical Decision Making MDM Narrative Medical decision making narrative: -Course: 25-year-old female presenting sinus pain and pressure. She has erythema of the posterior oropharynx. Given Tylenol and dexamethasone for pharyngitis. COVID and flu were negative. Strep throat was negative. Patient will be discharged on amoxicillin. Given primary care follow-up. -DDX includes but is not limited to: Strep throat, viral syndrome Vital Signs Vital Signs: Vital Signs Temperature 97.8 F 03/31/25 15:16 Pulse Rate 70 03/31/25 15:16 Respiratory Rate 18 03/31/25 15:16 Blood Pressure 134/78 03/31/25 15:16 Pulse Oximetry 100 03/31/25 15:16 Oxygen Delivery Room Air 03/31/25 15:16 Temperature 98.1 F 03/31/25 15:32 Pulse Rate 84 03/31/25 15:32 Respiratory Rate 16 03/31/25 15:32 Blood Pressure 130/87 03/31/25 15:32 Pulse Oximetry 100 03/31/25 15:32 Oxygen Delivery Room Air 03/31/25 15:32 Discharge Plan Discharge Clinical Impression: Pharyngitis Patient Disposition: Home Condition: Stable Instructions: Antibiotic Form, Pharyngitis (ED) Additional Instructions: You were seen emergency department for sinus pressure any sore throat. Your COVID, flu and strep throat were all negative. Please complete a course of amoxicillin. Please follow-up with your primary care physician for further management. He can use Motrin Tylenol as needed pain. Patient Language: Somali Prescriptions: New amoxicillin 500 mg capsule 500 mg PO Q12H Qty: 20 0RF ibuprofen 800 mg tablet 800 mg PO TID PRN (Reason: pain) 7 Days Qty: 21 0RF acetaminophen 500 mg tablet 1,000 mg PO TID PRN (Reason: ever) 7 Days Qty: 42 0RF No Action medroxyprogesterone 150 mg/mL suspension See Rx Instructions .ROUTE .COMPLEX Rx Instructions: Rx prednisone 50 mg tablet 50 mg PO DAILY Qty: 5 0RF ketoconazole 2 % cream 1 applic topical BID Qty: 60 1RF hydroxyzine pamoate [Vistaril] 25 mg capsule 25 - 50 mg PO TID Qty: 20 0RF ondansetron 4 mg tablet,disintegrating 4 mg PO Q6-8H PRN (Reason: nausea and vomiting) Qty: 14 0RF metoclopramide HCl [Reglan] 10 mg tablet 10 mg PO Q6H PRN (Reason: nausea and vomiting) Qty: 30 0RF Follow-up/Referrals: PHYSICIAN,RUBBER COVERING MACHINE OPERATOR [Primary Care Provider, Internal Medicine]
[2025-03-31] MEDS: dexAMETHasone SOD PHOS INJ 10 MG/ML 1 ML VIAL IM (16:23)
[2025-03-31 16:29] LABS: Influenza A QL RT-PCR Negative (Negative); Influenza B QL RT-PCR Negative (Negative); RSV RNA, RT-PCR Negative (Negative); SARS-CoV-2 RNA PCR Negative (Negative)
[2025-03-31 16:56] LABS: Strep Group A RT-PCR NOT DETECTED (Negative)
[2025-03-31 17:22] VITALS: BP 126/88; PULSE 78; RESP 17; TEMP 36.6; O2SAT 98
--- OUTSIDE RECORDS SUMMARY | 2025-03-31 19:30 | XMS_ITS | Clinical Summary ---
Author Organization [facility] Address [address] [place] [address] Phone Care Team Providers Care Carpet Sewer Name Role Phone Provider, None Primary Care Provider Unavailabl e Allergies No known active allergies Medications No known medications Immunizations Immunization Administration Dates Next Due Td [...] on patient's age to complete this topic Care Teams Carpet Sewer Relationship Specialty Start Date End Date Provider, None [place] PCP - General 10/07/24
--- OUTSIDE RECORDS SUMMARY | 2025-03-31 19:30 | XMS_ITS | Clinical Summary ---
Author Organization [facility] Address [address] [place] [address] Care Team Providers Care Design Supervisor Name Role Phone Lucila Nation MD Primary Care Provider [phone] Allergies No known active allergies Medications oxaprozin [...] series) 2017 COVID-19 Vaccine ( season) 2025 Influenza Adult (#1) 2025 HPV Vaccines Completed 01/20/2014, 06/11, 01/07/2012 Meningococcal Vaccine Completed 03/02/2014 Hepatitis A Vaccines Aged Out No long er eligible based on patient's age to complete this topic Meningococcal B Vaccine Aged Out No l [...] to complete this topic Insurance Care Teams Design Supervisor Relationship Specialty Start Date End Date Lucila Nation MD [address] [place] [address] PCP - General INTERNAL MEDICINE 01/19/22
--- OUTSIDE RECORDS SUMMARY | 2025-03-31 19:30 | XMS_ITS | Clinical Summary ---
Author Organization [facility] Address [address] [place] [address] Care Team Providers Care Pain Coordinator Name Role Phone Alena Perez CNM Primary Care Provider [phone] Allergies No known active allergies Medications lidocaine (LIDODERM) 5 %Indications:Pa in Place 1 patch on the skin daily Use patch for 12 hours on, 12 hours off. Discard after each use 7 patch 02/19/2024 Active naproxen (NAPROSYN) 500 mg tablet Take 1 tablet (500 mg total) by mouth 2 (two) times a day with meals 30 tablet 02/19/2024 Active orphenadrine ER (NORFLEX) 100 mg 12 hr tabletIndicatio ns:Muscle Spasm Take 1 tablet (100 mg total) by mouth 2 (two) times a day for 14 days 28 tablet 02/19/2024 Active traMADoL (ULTRAM) 50 mg tablet Take 1 tablet (50 mg total) by mouth every 6 (six) hours 10 tablet 02/19/2024 Active Social History Tobacco Use Types Packs/Day Years Used Date Smoking Tobacco: Never Assessed Personal Safety Answer Date Recorded Have you ever been in or are you currently in a harmful physical or emotional relationship or is someone making you feel afraid or unsafe? 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 Gender Identity Not on file Sexual Orientation Not on file Obstetrics History Last Filed Vital Signs Vital Sign Reading Time Taken Comments Blood Pressure 125/98 02/19/2024 6:58 PM CDT Pulse 71 02/19/2024 6:58 PM CDT Temperature 36.7 C (98.1 F) 02/19/2024 4:51 PM CDT Respiratory Rate 18 02/19/2024 6:58 PM CDT Oxygen Saturation 100% 02/19/2024 6:58 PM CDT Inhaled Oxygen Concentration - - Weight 71.6 kg (157 lb 13.6 oz) 02/19/2024 4:51 PM CDT Height 165.1 cm (5' 5) 02/19/2024 4:51 PM CDT Body Mass Index 26.27 02/19/2024 4:51 PM CDT Plan of Treatment Health Maintenance Due Date Last Done Comments Cervical Cancer Screening 1998 Depression Screening 1998 Hepatitis C Screening 1998 Regular Well Visit/Exam 18-64 02/17/2016 DTaP/Tdap/Td Vaccine (7 - Td or Tdap) 09/15/2019 09/14/2009, 09/14/2009, 01/22/2003, Additional history exists Covid-19 Vaccine ( season) 2025 01/23/2022 Influenza Vaccine (#1) 2025 03/02/2014 Hepatitis B Screening Completed 1998 , 1998, 1998, Additional history exists Pneumococcal vaccine <65 Aged Out 03/21/2001, 03/10 No longer eligible based on patient's age to complete this topic Varicella Vaccines Completed 09/14/2009, 02/23/1999 HPV Vaccines Completed 01/20/2014, 06/11, 01/07/2012 Insurance [facility] Care Teams Pain Coordinator Relationship Specialty Start Date End Date Alena Perez CNM PCP - General 01/11/21
--- OUTSIDE RECORDS SUMMARY | 2025-03-31 20:14 | XMS_ITS | Clinical Summary ---
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
--- OUTSIDE RECORDS SUMMARY | 2025-03-31 20:14 | XMS_ITS | Clinical Summary ---
Author Organization [facility] Address [address] [place] [address] Phone Care Team Providers Care Automotive Exhaust Emissions Technician Name Role Phone Provider, None Primary Care [...] age to complete this topic Care Teams Automotive Exhaust Emissions Technician Relationship Specialty Start Date End Date Provider, None [place] PCP - General 10/07/24
--- OUTSIDE RECORDS SUMMARY | 2025-03-31 20:14 | XMS_ITS | Clinical Summary ---
Author Organization [facility] Address [address] [place] [address] Care Team Providers Care Pourer Name Role Phone Lucila Nation MD Primary Care Provider [phone] Allergies No known active allergies Medications oxaprozin [...] to complete this topic Insurance Care Teams Pourer Relationship Specialty Start Date End Date Lucila Nation MD [address] [place] [address] PCP - General INTERNAL MEDICINE 01/19/22
== END 2025-03-31 17:24 | disposition home or self-care (01) ==
PROVIDERS: Emergency Provider Emergency Medicine
DX: J02.9 Acute pharyngitis, unspecified (principal); Z20.822 Contact with and (suspected) exposure to COVID-19
CPT/HCPCS: 87637; 87651; 96372; 99283; A9270; J1100